=== PATIENT | male | born 1970 | race Caucasian/White ===

== ENCOUNTER 2018-10-16 12:16 | Emergency (ER) | payer MEDICAID ==
[~2018-10-16] VITALS: Ht 162.6 cm; Wt 71.0 kg
[~2018-10-16 12:16] MED LIST: ACID1TAB7 PO; AZIT500T5 PO; CEFU500T PO; FLUT16SP24 NAS
--- NOTE | 2018-10-16 12:21 | NUR ---
CALLED FOR TRIAGE, WENT TO [employer] FOR WATER
[2018-10-16 12:29] VITALS: BP 104/75
--- NOTE | 2018-10-16 12:55 | NUR ---
BILATERAL ANKLE REDNESS AND SWELLING FOR THREE DAYS. PT HAD TO BE REDIRECTED TO DISCUSS THE REASON HE IS BEING SEEN. PT STARTED TALKING ABOUT PORNOGRAPHIC KIDS
== END 2018-10-16 13:17 | disposition home or self-care (01) ==
LOC: ED 13:06
DX: L55.0 Sunburn of first degree (principal); F17.200 Nicotine dependence, unspecified, uncomplicated; Z72.9 Problem related to lifestyle, unspecified; Z87.01 Personal history of pneumonia (recurrent)
CPT/HCPCS: 99281; 99283

== ENCOUNTER 2019-06-11 12:56 | Emergency (ER) | payer MEDICAID ==
[~2019-06-11] VITALS: Ht 162.6 cm; Wt 64.0 kg
[~2019-06-11 12:56] MED LIST changes: +AZIT500T10 PO; -AZIT500T5 PO
--- NOTE | 2019-06-11 13:26 | NUR ---
PT CAME TO ED CO OF FACIAL SWELLING X 1 WEEK. SAYS HE GOT EXPOSED TO CRUSHED PEPPER, WHICH, HE IS ALLERIGIC TO. MD IS RESTING IN [facility] [place]. MD IS BEDSIDE FOR ASSESSMENT
[2019-06-11 13:27] VITALS: BP 118/82
[2019-06-11] MEDS ORDERED: CEFTRIAXONE 1,000 MG ONE (14:28)
[2019-06-11] MEDS ORDERED: CEFTRIAXONE 1,000 MG IM ONE (14:30)
== END 2019-06-11 15:02 | disposition home or self-care (01) ==
LOC: ED 13:36
DX: J34.0 Abscess, furuncle and carbuncle of nose (principal); F17.200 Nicotine dependence, unspecified, uncomplicated
CPT/HCPCS: 96372; 99283; J0696

== ENCOUNTER 2019-10-31 19:49 | Emergency (ER) | payer MEDICAID ==
[~2019-10-31] VITALS: Ht 162.6 cm; Wt 59.1 kg
[2019-10-31 19:56] VITALS: BP 128/88
--- NOTE | 2019-10-31 20:10 | NUR ---
SAME TRIAGE NOTE. PT HAS RAISED ROUND BUMP ON R 3RD DIGIT. STATES HE PUT ON A WORK GLOVE YESTERDAY AT A CONSTRUCTION JOB SITE AND HE THINKS THERE MIGHT HAVE BEEN A SPIDER IN IT. SITE AROUND BUMP IS MILDLY RED & TENDER.
[2019-10-31] MEDS ORDERED: LIDOCAINE-MPF 1%, 5ML ONE (20:27)
[2019-10-31] MEDS ORDERED: LIDOCAINE 1%, 10ML INFIL ONE (20:30)
[2019-10-31] MEDS ORDERED: NEOSPORIN OINT. PKT 1 PACKET ONE ×2 (21:00→21:09)
--- NOTE | 2019-10-31 21:13 | NUR ---
R 3RD FINGER WOUND DRESSED WITH ABX OINTMENT, ADAPTIC, STERILE GAUZE, KERLIX WRAP. EXTRA ABX OINTMENT, WOUND CARE SUPPLIES, AND BAND-AIDS PROVIDED TO PT. D/C INSTRUCTIONS & F/U APPT RV'WD WITH PT, HE VERBALIZES UNDERSTANDING. AMBULATED OUT OF ED WITHOUT DIFFICULTY.
== END 2019-10-31 21:13 | disposition home or self-care (01) ==
LOC: ED 21:12
DX: S60.462A Insect bite (nonvenomous) of right middle finger, initial encounter (principal); W57.XXXA Bitten or stung by nonvenomous insect and other nonvenomous arthropods, initial encounter; Y93.89 Activity, other specified; Y92.488 Other paved roadways as the place of occurrence of the external cause; Y99.8 Other external cause status
CPT/HCPCS: 10140; 99284

== ENCOUNTER 2019-11-03 19:37 | Emergency (ER) | payer MEDICAID ==
[~2019-11-03] VITALS: Ht 162.6 cm; Wt 63.2 kg
[2019-11-03 19:38] VITALS: BP 109/76
[2019-11-03] MEDS ORDERED: LIDOCAINE-MPF 1%, 5ML ONE (19:57)
[2019-11-03] MEDS ORDERED: LIDOCAINE-MPF 1%, 5ML INFIL ONE (20:00)
== END 2019-11-03 21:14 | disposition home or self-care (01) ==
LOC: ED 21:00
DX: N48.21 Abscess of corpus cavernosum and penis (principal); B37.2 Candidiasis of skin and nail; F17.200 Nicotine dependence, unspecified, uncomplicated
CPT/HCPCS: 54700; 82962; 99284

== ENCOUNTER 2019-11-05 17:30 | Emergency (ER) | payer MEDICAID ==
[~2019-11-05] VITALS: Ht 162.6 cm; Wt 62.8 kg
--- NOTE | 2019-11-05 18:33 | NUR ---
PT AMBULATED BACK TO ROOM AT THIS TIME.
--- NOTE | 2019-11-05 18:50 | NUR ---
REPORT GIVEN TO VINAY AMBROSE. PT IS RESTING ON [facility] W/ CALL LIGHT IN REACH AND SIDE RAILS UPX2. TORRES SHEIKH. AWAITING ED EVAL.
--- NOTE | 2019-11-05 18:51 | NUR ---
BEDSIDE REPORT FROM DNEI AMBROSE. PT CARE TRANSFERRED AT THIS TIME. PT CAME IN TODAY DUE TO RIGHT TESTICULAR SWELLING. WAS IN RECENTLY AND HAD IT DRAINED AND THEN STATES THAT TODAY IT SWELLED BACK UP AND "FEELS LIKE ITS GOING TO POP." PT NAD, LAYING ON GURNEY, DENIES ADDITIONAL NEEDS AT THIS TIME. CALL LIGHT ON LAP, WARM BLANKETS FOR COMFORT. PT PLACED ON BP/SPO2/ECG MONITORING. WCTM.
[2019-11-05] MEDS ORDERED: LIDOCAINE-MPF 1%, 5ML INFIL ONE (19:30)
[2019-11-05] MEDS ORDERED: HYDROmorphone 2 MG/ML, 1ML IM ONE (19:30)
[2019-11-05] MEDS ORDERED: BUPIVACAINE/PF-EPI 0.25% 1:200K SQ ONE (19:30)
[2019-11-05] MEDS ORDERED: ONDANSETRON ODT 4 MG PO ONE (19:30)
[2019-11-05] MEDS ORDERED: BUPIVACAINE 0.25% ONE (19:40)
[2019-11-05] MEDS ORDERED: HYDROmorphone 2 MG/ML, 1ML ONE (19:40)
[2019-11-05] MEDS ORDERED: ONDANSETRON ODT 4 MG ONE (19:40)
[2019-11-05] MEDS ORDERED: LIDOCAINE-MPF 1%, 2ML ONE ×2 (19:40→20:37)
--- NOTE | 2019-11-05 19:47 | NUR ---
PT MEDICATED PER MAY. NAD, STATES "CAN I STAY HERE OVER NIGHT?" "IF IT SWELLS UP AGAIN I DONT WANT TO HAVE TO WALK ALL THE WAY OVER HERE AAGAIN". PT VSS, GIVEN ADDITIONAL WARM BLANKETS, DENIES ADDITIONAL NEEDS AT THIS TIME. WCTM.
--- NOTE | 2019-11-05 20:06 | NUR ---
ESTRELLITA AGUIRRE AT BS FOR I AND D. PT NAD, NO CHANGE IN CONDITION AT THIS TIME. GODFREY.
[2019-11-05] MEDS ORDERED: SULFAMETH./TRIMETHOPRIM DS 800MG/160MG TABLET PO ONE (20:30)
[2019-11-05] MEDS ORDERED: CEFTRIAXONE 1,000 MG IM ONE (20:30)
[2019-11-05] MEDS ORDERED: SULFAMETH./TRIMETHOPRIM DS 800MG/160MG TABLET ONE (20:34)
[2019-11-05] MEDS ORDERED: CEFTRIAXONE 1,000 MG ONE (20:34)
[2019-11-05 20:44] VITALS: BP 114/72
--- NOTE | 2019-11-05 20:45 | NUR ---
PT MEDICATED PER MAY. GIVEN CRACKERS. NAD. LIGHTS DIMMED FOR COMFORT. WCTM. PT TO BE DC.
--- NOTE | 2019-11-05 21:19 | NUR ---
Patient given discharge instructions and they have confirmed that they understand the instructions. Patient ambulatory with steady gait. NAD, GIVEN WATER PER REQUEST. STATES HE WILL RETURN FOR HIS PACKING REMOVAL. VSS. NO BELONGINGS LEFT IN ROOM AFTER DC.
== END 2019-11-05 21:21 | disposition home or self-care (01) ==
LOC: ED 19:41
DX: N49.2 Inflammatory disorders of scrotum (principal)
CPT/HCPCS: 46050; 96372; 99285; J0696; J1170; Q0162

== ENCOUNTER 2019-11-07 15:07 | Emergency (ER) | payer MEDICAID ==
[~2019-11-07] VITALS: Ht 162.6 cm; Wt 60.1 kg
--- NOTE | 2019-11-07 15:24 | NUR ---
Pt has abcess in mucocutaneous tissue attaching to scrotum. Pt reports he had a abcess draine yesterday and packed. Pt reports very painful and it has been draining all day. Pt reports he has been taking abx but sees no imrpovement. Pt connected to monitor and call light in reach. Pt requesting food. Pt also verbalized back pain.
[2019-11-07] MEDS ORDERED: OXYcodone/APAP 5/325MG TABLET ONE (15:47)
--- NOTE | 2019-11-07 15:48 | NUR ---
pt given food as he has not eaten all day prior to po medication admin. pt has been taken to us prior to admin. will medicate upon return
[2019-11-07] MEDS ORDERED: OXYcodone/APAP 5/325MG TABLET PO ONE (16:00)
[2019-11-07] MEDS ORDERED: SODIUM CHLORIDE FLUSH 10ML SYR IVF ONE (16:30)
[2019-11-07 16:32] LABS: BASOPHILS # (AUTO) 0.01 x10^3/uL (0-0.1); BASOPHILS % (AUTO) 0 % (0-1); EOSINOPHILS # (AUTO) 0.04 x10^3/uL (0-0.4); EOSINOPHILS % (AUTO) 1 % (1-7); LYMPHOCYTES # (AUTO) 1.11 x10^3/uL (1-3.4); LYMPHOCYTES % (AUTO) 36 % (22-44); MD NO; MEAN CORPUSCULAR HEMOGLOBIN 33.3 pg (27.5-34.5); MEAN CORPUSCULAR HGB CONC 33.1 g/dL (33.2-36.2); MEAN CORPUSCULAR VOLUME 100.7 fL (81-97); MEAN PLATELET VOLUME 7.5 fL (7.4-10.4); MONOCYTES # (AUTO) 0.46 x10^3/uL (0.2-0.8); MONOCYTES % (AUTO) 15 % (2-9); NEUTROPHILS % (AUTO) 48 % (42-75); PLATELET COUNT 249 x10^3/uL (130-400); RED BLOOD COUNT 3.91 x10^6/uL (4.38-5.82); RED CELL DISTRIBUTION WIDTH 12.9 % (9.4-14.8)
[2019-11-07 16:40] LABS: ALBUMIN 3.4 g/dL (3.4-5.0); ANION GAP 9 mmol/L (5-15); CALCIUM 8.4 mg/dL (8.5-10.1); CHLORIDE 100 mmol/L (98-107); CREATININE 0.77 mg/dL (0.7-1.3)
[2019-11-07 17:43] VITALS: BP 109/69
[2019-11-07] MEDS ORDERED: OMNIPAQUE 350 MG/ML, 100ML BOTTLE ONE (17:44)
--- NOTE | 2019-11-07 18:13 | NUR ---
ct returned to the room. radiologist requests 2nd ct of lower abd to include groin
== END 2019-11-07 20:06 | disposition home or self-care (01) ==
LOC: ED 16:42
DX: K61.1 Rectal abscess (principal); R10.2 Pelvic and perineal pain; F17.210 Nicotine dependence, cigarettes, uncomplicated
CPT/HCPCS: 36415; 74177; 76870; 80048; 82040; 85025; 99285; 99406; Q9967

== ENCOUNTER 2019-11-09 20:27 | Emergency (ER) | payer MEDICAID ==
[~2019-11-09] VITALS: Ht 162.6 cm; Wt 59.7 kg
[2019-11-09 20:31] VITALS: BP 149/93
--- NOTE | 2019-11-09 20:54 | NUR ---
PATIENT STATES 2 DAYS AGO HE HAD AN ABCESS FROM A BUG BITE IN HIS PERINEAL AREA, AND HAD IT DRAINED AND THERE WAS PACKING PLACED. NO PAIN RIGHT NOW, AND PATIENT STATES HE NEEDS THE PACKING REMOVED FROM IT. ALL SAFETY MEASURES IN PLACE.
--- NOTE | 2019-11-09 21:45 | NUR ---
PATIENT AMBULATED STEADY TO SHOWER TO CLEAN WOUND.
--- NOTE | 2019-11-09 22:15 | NUR ---
PATIENT BACK IN ROOM FROM SHOWER
== END 2019-11-09 23:12 | disposition home or self-care (01) ==
LOC: ED 21:41
DX: Z48.01 Encounter for change or removal of surgical wound dressing (principal); E11.9 Type 2 diabetes mellitus without complications
CPT/HCPCS: 99281

== ENCOUNTER 2019-11-15 08:51 | Emergency (ER) | payer MEDICAID ==
[~2019-11-15] VITALS: Ht 162.6 cm; Wt 60.0 kg
[2019-11-15 09:04] VITALS: BP 101/64
== END 2019-11-15 09:35 | disposition home or self-care (01) ==
LOC: ED 09:25
DX: N49.9 Inflammatory disorder of unspecified male genital organ (principal); B37.42 Candidal balanitis; E11.9 Type 2 diabetes mellitus without complications
CPT/HCPCS: 99282